=== PATIENT | female | born 1925 | race Caucasian/White ===

== ENCOUNTER 2016-11-17 18:24 | Emergency (ER) | payer MEDICARE, BC ==
[2016-11-17] MEDS ORDERED: SODIUM CHLORIDE 0.9% 1,000 ML ONE (19:11)
[2016-11-17] MEDS ORDERED: ACETAMINOPHEN 325 MG TAB ONE (19:59)
== END 2016-11-18 00:07 | disposition home or self-care (01) ==
LOC: ER 18:24
DX: S06.0X9A Concussion with loss of consciousness of unspecified duration, initial encounter (principal); W07.XXXA Fall from chair, initial encounter; Y92.009 Unspecified place in unspecified non-institutional (private) residence as the place of occurrence of the external cause; R55 Syncope and collapse; Z76.0 Encounter for issue of repeat prescription; Z79.899 Other long term (current) drug therapy
CPT/HCPCS: 36415; 70450; 80053; 82553; 82947; 84484; 85025; 85610; 85730; 93005; 96360